=== PATIENT | male | born 1970 | race Two or more races ===

== ENCOUNTER 2021-05-31 10:12 | Inpatient (IN) | payer OTHER ==
[~2021-05-31] VITALS: Ht 170.2 cm; Wt 96.0 kg
--- NOTE | 2021-05-31 10:59 | PHYS DOC ---
General Adult EDM: Chief Complaint: ABDOMINAL PAIN HPI: HPI: Patient is a 50 year olduow-pyva-thw male presents to the ED with right lower quadrant pain and fever that started this morning. Patient states that he was not feeling well yesterday. Patient states that he took Tylenol. Last meal was yesterday due to decrease in appetite. Patient states he has not had this pain before. Patient denies a surgical past. Denies any changes in his bowels. Denies any dysuria or flank pain. Review of Systems: Review of Systems: Constitutional: Patient reports fever fatigue decreased appetite Eyes: Denies change in visual acuity. [] HENT: Denies nasal congestion or sore throat. [] Respiratory: Denies cough or shortness of breath. [] Cardiovascular: Denies chest pain or edema. [] GI: Right lower quadrant abdominal pain nausea no vomiting or diarrhea : No flank denies dysuria. [] Musculoskeletal: Denies back pain or joint pain. [] Integument: Denies rash. [] Neurologic: Denies headache, focal weakness or sensory changes. [] Endocrine: Denies polyuria or polydipsia. [] Lymphatic: Denies swollen glands. [] Psychiatric: Denies depression or anxiety. [] Heart Score: C/O Chest Pain: No Risk Factors: Risk Factors: DM, Current or recent (<one month) smoker, HTN, HLP, family history of CAD, obesity. Risk Scores: Score 0 - 3: 2.5% MACE over next 6 weeks - Discharge Home Score 4 - 6: 20.3% MACE over next 6 weeks - Admit for Clinical Observation Score 7 - 10: 72.7% MACE over next 6 weeks - Early Invasive Strategies Allergies: Allergies: Allergies Coded Allergies Type Severity Reaction Last Updated Verified No Known Drug Allergies 05/31/21 No Physical Exam: PE: Constitutional: Well developed, well nourished, no acute distress, non-toxic appearance. [] HENT: Normocephalic, atraumatic, bilateral external ears normal, oropharynx moist, no oral exudates, nose normal. [] Eyes: PERRLA, EOMI, conjunctiva normal, no discharge. [] Neck: Normal range of motion, no tenderness, supple, no stridor. [] Cardiovascular:Heart rate regular rhythm, no murmur [] Lungs & Thorax: Bilateral breath sounds clear to auscultation [] Abdomen: Patient's abdomen is soft with normal bowel sounds. Patient does have tenderness along McBurney's point with no rebound tenderness.] Skin: Warm, dry, no erythema, no rash. [] Back: No tenderness, no CVA tenderness. [] Extremities: No tenderness, no cyanosis, no clubbing, ROM intact, no edema. [] Neurologic: Alert and oriented X 3, normal motor function, normal sensory function, no focal deficits noted. [] Psychologic: Affect normal, judgement normal, mood normal. [] EKG: EKG: [] Patient is a normal sinus rhythm with a heart rate of 95 QTC 4 2 with a MA interval 184. Patient does have T wave inversions in lead III and aVF. No reciprocal changes Radiology/Procedures: Radiology/Procedures: []Impression: 1. Acute uncomplicated appendicitis. 2. Multiple peripherally calcified objects within the ascending and transverse colon, suspect ingested bones. Correlate with dietary/ingestion history. Discussed with surgery on-call Discussed with patient's primary care physician Course & Med Decision Making: Course & Med Decision Making Pertinent Labs and Imaging studies reviewed. (See chart for details) [] Dragon Disclaimer: Dragon Disclaimer: This electronic medical record was generated, in whole or in part, using a voice recognition dictation system. Departure Departure Referrals: NO PCP (PCP) YENI RODRIGUEZ DO May 31, 2021 10:59
[2021-05-31] MEDS ORDERED: IV NORMAL SALINE 1000ML BAG 1,000 ML IV SCH (11:00)
[2021-05-31] MEDS ORDERED: MORPHINE SULFATE 2 MG/ML INJ. IVP ONE (11:00)
[2021-05-31 11:36] LABS: BASO % 0 % (0-3); EOS % 0 % (0-3); HEMATOCRIT 41.8 % (39.0-53.0); HEMOGLOBIN 13.9 g/dL (13.0-17.5); LYMPH # 0.4 x10^3/uL (1.0-4.8); LYMPH % 4 % (24-48); MEAN CORPUSCULAR HEMOGLOBIN 25 pg (25-35); MEAN CORPUSCULAR HGB CONC 33 g/dL (31-37); MEAN CORPUSCULAR VOLUME 77 fL (79-100); MONO # 0.1 x10^3/uL (0.0-1.1); MONO % 1 % (0-9); NEUT # 10.8 x10^3/uL (1.8-7.7); NEUT % 95 % (31-73); PLATELET COUNT 174 x10^3/uL (140-400); RED BLOOD COUNT 5.47 x10^6/uL (4.30-5.70); RED CELL DISTRIBUTION WIDTH 14.9 % (11.5-14.5); WHITE BLOOD COUNT 11.3 x10^3/uL (4.0-11.0)
[2021-05-31 11:44] LABS: PROTHROMBIN TIME PATIENT 14.5 SEC (11.7-14.0)
[2021-05-31 11:48] LABS: CALCIUM 9.1 mg/dL (8.5-10.1); CREATININE 1.3 mg/dL (0.7-1.3); GFR 58.4; POTASSIUM 3.2 mmol/L (3.5-5.1)
[2021-05-31 11:55] LABS: ALBUMIN 3.6 g/dL (3.4-5.0); TOTAL BILIRUBIN 0.5 mg/dL (0.2-1.0); TOTAL PROTEIN 7.1 g/dL (6.4-8.2)
[2021-05-31] MEDS ORDERED: IOHEXOL 300 MG/ML 100ML VIAL. IV ONE (12:15)
--- NOTE | 2021-05-31 13:18 | RAD ---
CT ABDOMEN+PELVIS W History: Right lower quadrant pain and fever. Comparison: None. Technique: CT of abdomen and pelvis with intravenous contrast. Findings: Mild dependent changes in the lung bases. Subcentimeter hypodensity in the right hepatic lobe too sma ll to completely characterize, most likely represents benign cyst or hemangioma. The gallbladder, vu creas, spleen, adrenal glands, and kidneys are unremarkable. The stomach is decompressed. Small bowel is unremarkable. There is a dilated appendix measuring 1.5 c m diameter with adjacent inflammatory fat stranding. No periappendiceal fluid collection is identifie d. There are irregular peripherally calcified, essentially hypodense rectangular and irregular shaped hypodense measuring approximately 1.4 cm x 0.4 cm layering dependently throughout the proximal colon consistent with ingested material, possibly bones. The bladder and prostate are unremarkable. Mild aortoiliac calcification without aneurysm. No abdomin al pelvic adenopathy. No intra-abdominal free air or free fluid. The soft tissues are unremarkable. Multilevel degenerative disc and facet disease in the lumbar spine . Impression: 1. Acute uncomplicated appendicitis. 2. Multiple peripherally calcified objects within the ascending and transverse colon, suspect ingest ed bones. Correlate with dietary/ingestion history. ------ Exposure: One or more of the following individualized dose reduction techniques were utilized for thi s examination: 1. Automated exposure control 2. Adjustment of the mA and/or kV according to patient size 3. Use of iterative reconstruction technique. Electronically signed by: Charles Powell MD (05/31/2021 1:15 PM) [id number]
--- NOTE | 2021-05-31 13:44 | EKG ---
[facility] [address] [place] [address] Test Date: 2021-05-31 Test Time: 11:03:40 Pat Name: JEAN PAUL YOON Department: Room: Gender: M Radiology Tech: : [id number] Requested By: YENI RODRIGUEZ Order Number: [id number] Reading MD: Bruce Owens Measurements Intervals [place] Rate: 95 P: 33 MI: 184 QRS: 49 QRSD: 110 T: -21 QT: 338 QTc: 428 Interpretive Statements SINUS RHYTHM Electronically Signed On 06-02-2021 13:32:46 CDT by Bruce Owens
[2021-05-31] MEDS ORDERED: PROCHLORPERAZINE 10 MG/2 ML VIAL. IVP PRN (14:15)
[2021-05-31] MEDS ORDERED: HYDROmorphone 2 MG/ML INJ. IVP PRN (14:15)
[2021-05-31] MEDS ORDERED: IV RINGERS,LACTATED 1000ML 1,000 ML IV SCH (14:15)
[2021-05-31] MEDS ORDERED: PIPERACILLIN/TAZOBACTAM 3.375 GM in IV NORMAL SALINE 50ML 50 ML IV ONE (14:15)
[2021-05-31] MEDS ORDERED: MORPHINE SULFATE 2 MG/ML INJ. IVP PRN (14:15)
[2021-05-31] MEDS ORDERED: fentaNYL PF VIAL 100 MCG/2 ML VIAL IVP PRN ×2 (14:15)
[2021-05-31] MEDS ORDERED: BUPIVACAINE-EPI 0.5% 30 ML VIAL KIT. ONE (14:44)
--- NOTE | 2021-05-31 14:45 | PDOC2 ---
CONSULT Date of Consult Date of Consult DATE: 05/31/21 TIME: 14:42 History of Present Illness Reason for Visit: The patient is a 50 year old male who reported to the ER with abdominal pain. The pain began yesterday and has been located in the RLQ. The pain was severe and persistent today. He denies radiation of the pain. He also denies nausea or vomiting. His ER evaluation is consistent with acute appendicitis. Past Medical History Past Medical History diabetes mellitus, CAD Past Surgical History Past Surgical History cardiac stents Social History No ALCOHOL: none Drugs: None Current Problem List Problem List Problems Medical Problems: (1) Appendicitis Status: Acute Current Medications Current Medications Current Medications Sodium Chloride 1,000 ml @ 1,000 mls/hr Q1H IV Last administered on 05/31/21at 11:31; Start 05/31/21 at 11:00; Stop 05/31/21 at 11:59; Status DC Morphine Sulfate (Morphine Sulfate) 2 mg 1X ONCE IVP Last administered on 05/31/21at 11:31; Start 05/31/21 at 11:00; Stop 05/31/21 at 11:08; Status DC Iohexol (Omnipaque 300 Mg/ml) 60 ml 1X ONCE IV Last administered on 05/31/21at 12:26; Start 05/31/21 at 12:15; Stop 05/31/21 at 12:18; Status DC Piperacillin Sod/ Tazobactam Sod 3.375 gm/Sodium Chloride 50 ml @ 100 mls/hr 1X ONCE IV ; Start 05/31/21 at 14:15; Stop 05/31/21 at 14:44 Fentanyl Citrate (Fentanyl 2ml Vial) 25 mcg PRN Q5MIN PRN IVP MILD PAIN 1-3; Start 05/31/21 at 14:15; Stop 06/01/21 at 14:14 Fentanyl Citrate (Fentanyl 2ml Vial) 50 mcg PRN Q5MIN PRN IVP MODERATE PAIN 4- 6; Start 05/31/21 at 14:15; Stop 06/01/21 at 14:14 Morphine Sulfate (Morphine Sulfate) 1 mg PRN Q10MIN PRN IVP SEVERE PAIN 7-10; Start 05/31/21 at 14:15; Stop 06/01/21 at 14:14 Ringer's Solution 1,000 ml @ 30 mls/hr Q24H IV ; Start 05/31/21 at 14:15; Stop 06/01/21 at 02:14 Hydromorphone HCl (Dilaudid) 0.5 mg PRN Q10MIN PRN IVP SEVERE PAIN 7-10, 2nd CHOICE; Start 05/31/21 at 14:15; Stop 06/01/21 at 14:14 Prochlorperazine Edisylate (Compazine) 5 mg PACU PRN PRN IVP NAUSEA, MRX1; Start 05/31/21 at 14:15; Stop 06/01/21 at 14:14 Allergies Allergies: Coded Allergies: No Known Drug Allergies (Unverified , 05/31/21) ROS General: No: Chills, Night Sweats, Fatigue, Malaise, Appetite, Other PSYCHOLOGICAL ROS: No: Anxiety, Behavioral Disorder, Concentration difficultie, Decreased libido, Depression, Disorientation, Hallucinations, Hostility, Irritablity, Memory difficulties, Mood Swings, Obsessive thoughts, Physical abuse, Sexual abuse, Sleep disturbances, Suicidal ideation, Other Eyes: No Blurry vision, No Decreased vision, No Double vision, No Dry eyes, No Excessive tearing, No Eye Pain, No Itchy Eyes, No Loss of vision, No Photophobia, No Scotomata, No Uses contacts, No Uses glasses, No Other ALLERGY AND IMMUNOLOGY: No: Hives, Insect Bite Sensitivity, Itchy/Watery Eyes, Nasal Congestion, Post Nasal Drip, Seasonal Allergies, Other Hematological and Lymphatic: No: Bleeding Problems, Blood Clots, Blood Transfusions, Brusing, Night Sweats, Pallor, Swollen Lymph Nodes, Other Respiratory: No: Cough, Hemoptysis, Orthopnea, Pleuritic Pain, Shortness of breath, SOB with excertion, Sputum Changes, Stridor, Tachypnea, Wheezing, Other Cardiovascular: No Chest Pain, No Palpitations, No Orthopnea, No Paroxysmal Noc. Dyspnea, No Edema, No Lt Headedness, No Other Gastrointestinal: Yes Abdominal Pain Genitourinary: No Dysuria, No Frequency, No Incontinence, No Hematuria, No Retention, No Discharge, No Urgency, No Pain, No Flank Pain, No Other, No , No , No , No , No , No , No Musculoskeletal: No Gait Disturbance, No Joint Pain, No Joint Stiffness, No Joint Swelling, No Muscle Pain, No Muscular Weakness, No Pain In:, No Swelling In:, No Other Neurological: No Behavorial Changes, No Bowel/Bladder ControlChng, No Confusion, No Dizziness, No Gait Disturbance, No Headaches, No Impaired Coord/balance, No Memory Loss, No Numbness/Tingling, No Seizures, No Speech Problems, No Tremors, No Visual Changes, No Weakness, No Other Skin: No Dry Skin, No Eczema, No Hair Changes, No Lumps, No Mole Changes, No M ottling, No Nail Changes, No Pruritus, No Rash, No Skin Lesion Changes, No Other, No Acne Physical Exam General: Alert, Oriented X3, Cooperative HEENT: Atraumatic Lungs: Clear to auscultation Abdomen: Soft (tender with guarding in RLQ) Extremities: No clubbing, No cyanosis Skin: No rashes, No breakdown Neuro: Normal speech Psych/Mental Status: Mental status NL MUSCULOSKELETAL: No joint tenderness, No deformity Vitals VITALS Vital Signs Date Time Temp Pulse Resp B/P (MAP) Pulse Ox O2 Delivery O2 Flow Rate FiO2 05/31/21 13:59 90 21 116/65 (82) 95 Room Air 05/31/21 10:30 98.2 98.2 Labs Labs Laboratory Tests Test 05/31/21 11:05 White Blood Count 11.3 x10^3/uL (4.0-11.0) Red Blood Count 5.47 x10^6/uL (4.30-5.70) Hemoglobin 13.9 g/dL (13.0-17.5) Hematocrit 41.8 % (39.0-53.0) Mean Corpuscular Volume 77 fL (79-100) Mean Corpuscular Hemoglobin 25 pg (25-35) Mean Corpuscular Hemoglobin Concent 33 g/dL (31-37) Red Cell Distribution Width 14.9 % (11.5-14.5) Platelet Count 174 x10^3/uL (140-400) Neutrophils (%) (Auto) 95 % (31-73) Lymphocytes (%) (Auto) 4 % (24-48) Monocytes (%) (Auto) 1 % (0-9) Eosinophils (%) (Auto) 0 % (0-3) Basophils (%) (Auto) 0 % (0-3) Neutrophils # (Auto) 10.8 x10^3/uL (1.8-7.7) Lymphocytes # (Auto) 0.4 x10^3/uL (1.0-4.8) Monocytes # (Auto) 0.1 x10^3/uL (0.0-1.1) Eosinophils # (Auto) 0.0 x10^3/uL (0.0-0.7) Basophils # (Auto) 0.0 x10^3/uL (0.0-0.2) Prothrombin Time 14.5 SEC (11.7-14.0) Prothromb Time International Ratio 1.2 (0.8-1.1) Sodium Level 135 mmol/L (136-145) Potassium Level 3.2 mmol/L (3.5-5.1) Chloride Level 101 mmol/L (98-107) Carbon Dioxide Level 24 mmol/L (21-32) Anion Gap 10 (6-14) Blood Urea Nitrogen 20 mg/dL (8-26) Creatinine 1.3 mg/dL (0.7-1.3) Estimated GFR (Cockcroft-Gault) 58.4 BUN/Creatinine Ratio 15 (6-20) Glucose Level 164 mg/dL (70-99) Calcium Level 9.1 mg/dL (8.5-10.1) Total Bilirubin 0.5 mg/dL (0.2-1.0) Aspartate Amino Transf (AST/SGOT) 43 U/L (15-37) Alanine Aminotransferase (ALT/SGPT) 53 U/L (16-63) Alkaline Phosphatase 95 U/L (46-116) Total Protein 7.1 g/dL (6.4-8.2) Albumin 3.6 g/dL (3.4-5.0) Albumin/Globulin Ratio 1.0 (1.0-1.7) Lipase 94 U/L (73-393) SARS-CoV-2 Antigen (Rapid) Negative (NEGATIVE) Laboratory Tests Test 05/31/21 11:05 White Blood Count 11.3 x10^3/uL (4.0-11.0) Red Blood Count 5.47 x10^6/uL (4.30-5.70) Hemoglobin 13.9 g/dL (13.0-17.5) Hematocrit 41.8 % (39.0-53.0) Mean Corpuscular Volume 77 fL (79-100) Mean Corpuscular Hemoglobin 25 pg (25-35) Mean Corpuscular Hemoglobin Concent 33 g/dL (31-37) Red Cell Distribution Width 14.9 % (11.5-14.5) Platelet Count 174 x10^3/uL (140-400) Neutrophils (%) (Auto) 95 % (31-73) Lymphocytes (%) (Auto) 4 % (24-48) Monocytes (%) (Auto) 1 % (0-9) Eosinophils (%) (Auto) 0 % (0-3) Basophils (%) (Auto) 0 % (0-3) Neutrophils # (Auto) 10.8 x10^3/uL (1.8-7.7) Lymphocytes # (Auto) 0.4 x10^3/uL (1.0-4.8) Monocytes # (Auto) 0.1 x10^3/uL (0.0-1.1) Eosinophils # (Auto) 0.0 x10^3/uL (0.0-0.7) Basophils # (Auto) 0.0 x10^3/uL (0.0-0.2) Prothrombin Time 14.5 SEC (11.7-14.0) Prothromb Time International Ratio 1.2 (0.8-1.1) Sodium Level 135 mmol/L (136-145) Potassium Level 3.2 mmol/L (3.5-5.1) Chloride Level 101 mmol/L (98-107) Carbon Dioxide Level 24 mmol/L (21-32) Anion Gap 10 (6-14) Blood Urea Nitrogen 20 mg/dL (8-26) Creatinine 1.3 mg/dL (0.7-1.3) Estimated GFR (Cockcroft-Gault) 58.4 BUN/Creatinine Ratio 15 (6-20) Glucose Level 164 mg/dL (70-99) Calcium Level 9.1 mg/dL (8.5-10.1) Total Bilirubin 0.5 mg/dL (0.2-1.0) Aspartate Amino Transf (AST/SGOT) 43 U/L (15-37) Alanine Aminotransferase (ALT/SGPT) 53 U/L (16-63) Alkaline Phosphatase 95 U/L (46-116) Total Protein 7.1 g/dL (6.4-8.2) Albumin 3.6 g/dL (3.4-5.0) Albumin/Globulin Ratio 1.0 (1.0-1.7) Lipase 94 U/L (73-393) SARS-CoV-2 Antigen (Rapid) Negative (NEGATIVE) Images Images CT reviewed Assessment/Plan Assessment/Plan RLQ pain, suspect acute appendicitis, plan to OR for laparoscopy. The details and risks of surgery were discussed with the patient. He understands and would like to proceed. NEIL DE JESUS MD May 31, 2021 14:45
[2021-05-31] MEDS ORDERED: ROCURONIUM 50 MG/5 ML VIAL. ONE (14:51)
[2021-05-31] MEDS ORDERED: PROPOFOL 10 MG/ML (20ML) VIAL. IV ONE ×2 (14:51→15:31)
[2021-05-31] MEDS ORDERED: LIDOCAINE 2% PF 5 ML VIAL. ONE (14:51)
[2021-05-31] MEDS ORDERED: DEXAMETHASONE SOD PHOS 4 MG/ML VIAL ONE (14:51)
[2021-05-31] MEDS ORDERED: ONDANSETRON PF 4 MG/2 ML VIAL. ONE (14:51)
[2021-05-31] MEDS ORDERED: PHENYLEPHRINE in 0.9% NACL PF 1 MG/10 ML SYRINGE. IV ONE (15:18)
[2021-05-31] MEDS ORDERED: fentaNYL PF VIAL 100 MCG/2 ML VIAL ONE (15:31)
[2021-05-31] MEDS ORDERED: SUGAMMADEX SODIUM 200 MG/2 ML VIAL. IVP ONE (16:00)
--- NOTE | 2021-05-31 16:06 | PDOC4 ---
Operative Note Operative Note Preoperative Diagnosis: Acute Appendicitis Postoperative Diagnosis: Gangrenous appendicitis Procedure: Laparoscopic appendectomy Surgeon: Alfonso Supervisor Curing Room: Regulo Higgins, MS 3 Anesthesia: Gen. EBL: 10 mL Specimen: Appendix to pathology Drains: None Complications: None Indication: The patient is a 50-year-old male who reported to the emergency department with abdominal pain. The evaluation is consistent with acute appendicitis. The patient was offered surgical treatment with a laparoscopic appendectomy. The risks of surgery were discussed which include bleeding, infection, visceral injury, pain, anesthetic risk, potential need for additional surgery or procedure. The patient understands and would like to proceed. Description: The patient was taken to the operating room and placed supine on the operating table. Gen. anesthesia was performed. The abdomen was prepped with ChloraPrep and draped in a standard surgical manner. A supraumbilical incision was made through which a veress needle was inserted and a pneumoperitoneum was created. A visualized 5 mm trocar was inserted and the laparoscope was introduced. In the left lower quadrant a 5 mm trocar was inserted. In the suprapubic region a 12 mm trocar was inserted. The appendix was identified and was entirely gangrenous. There was no clear evidence of perforation or periappendiceal abscess. The mesoappendix was bluntly from the appendix. The mesoappendix was controlled using several clips and it was divided. The appendix was then amputated off the cecum using an Endo OSIEL 45 stapling device. The appendix was then placed in an endoscopic bag and extracted at the suprapubic incision site. The fascia there was closed with 0 Vicryl and infiltrated with half percent Marcaine with epinephrine. The RLQ was visualized and the staple line appeared well intact and hemostasis was good. No other abnormalities were identified grossly. The remaining ports were removed and the pneumoperitoneum was relieved. The skin at all incision sites was closed with 4- 0 Monocryl. Steri-Strips and dressings were applied. The patient tolerated the procedure well and was sent to the recovery room in stable condition. At the end of the case all counts were correct. NEIL DE JESUS MD May 31, 2021 16:05
[2021-05-31] MEDS ORDERED: INSULIN LISPRO 100 UNIT/ML 3ML VIAL for OP,RR ONLY. SQ PRN (16:45)
[2021-05-31] MEDS: PIPERACILLIN/TAZOBACTAM 3.375 GM in IV NORMAL SALINE 50ML 50 ML IV SCH (17:29)
[2021-05-31 18:02] VITALS: BP 117/67
--- NOTE | 2021-05-31 18:29 | PDOC ---
Provider Note Date of Service: DATE: 05/31/21 TIME: 18:28 Provider Note Pt seen.H&P dictated.#[id number]. Justifications for Admission Other Justification MELONY KIMBLE MD May 31, 2021 18:29
[2021-05-31 19:00] VITALS: BP 101/62
[2021-05-31 23:00] VITALS: BP 120/70
[2021-06-01] MEDS: PIPERACILLIN/TAZOBACTAM 3.375 GM in IV NORMAL SALINE 50ML 50 ML IV SCH ×4 (00:11→18:18)
[2021-06-01 03:00] VITALS: BP 113/65
[2021-06-01] MEDS: oxyCODONE/APAP 5/325 1 TAB TABLET PO PRN ×3 (03:34→20:05)
[2021-06-01 07:00] VITALS: BP 104/64
[2021-06-01 07:22] LABS: BASO % 0 % (0-3); EOS % 0 % (0-3); HEMATOCRIT 37.4 % (39.0-53.0); HEMOGLOBIN 12.3 g/dL (13.0-17.5); LYMPH # 0.6 x10^3/uL (1.0-4.8); LYMPH % 5 % (24-48); MEAN CORPUSCULAR HEMOGLOBIN 26 pg (25-35); MEAN CORPUSCULAR HGB CONC 33 g/dL (31-37); MEAN CORPUSCULAR VOLUME 78 fL (79-100); MONO # 0.6 x10^3/uL (0.0-1.1); MONO % 5 % (0-9); NEUT # 10.3 x10^3/uL (1.8-7.7); NEUT % 90 % (31-73); PLATELET COUNT 162 x10^3/uL (140-400); RED CELL DISTRIBUTION WIDTH 15.3 % (11.5-14.5); WHITE BLOOD COUNT 11.5 x10^3/uL (4.0-11.0)
[2021-06-01 07:27] LABS: ALBUMIN 2.9 g/dL (3.4-5.0); ALBUMIN/GLOBULIN RATIO 0.7 (1.0-1.7); CALCIUM 8.5 mg/dL (8.5-10.1); CREATININE 0.7 mg/dL (0.7-1.3); GFR 119.4; POTASSIUM 3.3 mmol/L (3.5-5.1); TOTAL BILIRUBIN 0.5 mg/dL (0.2-1.0); TOTAL PROTEIN 7.1 g/dL (6.4-8.2)
--- NOTE | 2021-06-01 09:26 | PDOC ---
PROGRESS NOTES Date of Service: DATE: 06/01/21 TIME: 09:24 Subjective Subjective feels good ,eating breakfast Objective Objective Vital Signs Date Time Temp Pulse Resp B/P (MAP) Pulse Ox O2 Delivery O2 Flow Rate FiO2 06/01/21 07:00 98.6 75 20 104/64 (77) 95 Nasal Cannula 2.0 98.6 Intake and Output 06/01/21 07:00 Intake Total 2350 ml Output Total 910 ml Balance 1440 ml Intake IV Total 2350 ml Output Urine Total 900 ml Estimated Blood Loss 10 ml # Voids 1 Physical Exam Abdomen: Soft (tender with guarding in RLQ) Extremities: No clubbing, No cyanosis General: Alert, Oriented X3, Cooperative HEENT: Atraumatic Lungs: Clear to auscultation MUSCULOSKELETAL: No joint tenderness, No deformity Neuro: Normal speech Psych/Mental Status: Mental status NL Skin: No rashes, No breakdown Diagnosis Problem List Problems Medical Problems: (1) Appendicitis Status: Acute Assessment Assessment Problems Medical Problems: (1) Appendicitis Status: Acute Plan:POD#1 LAP appendectomy-gangrenous appendix removed. possible d/c home today. replace pot pot 3.3,other labs ok Plan Plan of Care Problems Medical Problems: (1) Appendicitis Status: Acute Comment Review of Relevant I have reviewed the following items reny (where applicable) has been applied. Labs Laboratory Tests Test 05/31/21 11:05 05/31/21 14:55 05/31/21 16:41 06/01/21 06:00 White Blood Count 11.3 x10^3/uL (4.0-11.0) 11.5 x10^3/uL (4.0-11.0) Red Blood Count 5.47 x10^6/uL (4.30-5.70) 4.80 x10^6/uL (4.30-5.70) Hemoglobin 13.9 g/dL (13.0-17.5) 12.3 g/dL (13.0-17.5) Hematocrit 41.8 % (39.0-53.0) 37.4 % (39.0-53.0) Mean Corpuscular Volume 77 fL (79-100) 78 fL (79-100) Mean Corpuscular Hemoglobin 25 pg (25-35) 26 pg (25-35) Mean Corpuscular Hemoglobin Concent 33 g/dL (31-37) 33 g/dL (31-37) Red Cell Distribution Width 14.9 % (11.5-14.5) 15.3 % (11.5-14.5) Platelet Count 174 x10^3/uL (140-400) 162 x10^3/uL (140-400) Neutrophils (%) (Auto) 95 % (31-73) 90 % (31-73) Lymphocytes (%) (Auto) 4 % (24-48) 5 % (24-48) Monocytes (%) (Auto) 1 % (0-9) 5 % (0-9) Eosinophils (%) (Auto) 0 % (0-3) 0 % (0-3) Basophils (%) (Auto) 0 % (0-3) 0 % (0-3) Neutrophils # (Auto) 10.8 x10^3/uL (1.8-7.7) 10.3 x10^3/uL (1.8-7.7) Lymphocytes # (Auto) 0.4 x10^3/uL (1.0-4.8) 0.6 x10^3/uL (1.0-4.8) Monocytes # (Auto) 0.1 x10^3/uL (0.0-1.1) 0.6 x10^3/uL (0.0-1.1) Eosinophils # (Auto) 0.0 x10^3/uL (0.0-0.7) 0.0 x10^3/uL (0.0-0.7) Basophils # (Auto) 0.0 x10^3/uL (0.0-0.2) 0.0 x10^3/uL (0.0-0.2) Prothrombin Time 14.5 SEC (11.7-14.0) Prothromb Time International Ratio 1.2 (0.8-1.1) Sodium Level 135 mmol/L (136-145) 138 mmol/L (136-145) Potassium Level 3.2 mmol/L (3.5-5.1) 3.3 mmol/L (3.5-5.1) Chloride Level 101 mmol/L (98-107) 105 mmol/L (98-107) Carbon Dioxide Level 24 mmol/L (21-32) 22 mmol/L (21-32) Anion Gap 10 (6-14) 11 (6-14) Blood Urea Nitrogen 20 mg/dL (8-26) 20 mg/dL (8-26) Creatinine 1.3 mg/dL (0.7-1.3) 0.7 mg/dL (0.7-1.3) Estimated GFR (Cockcroft-Gault) 58.4 119.4 BUN/Creatinine Ratio 15 (6-20) 29 (6-20) Glucose Level 164 mg/dL (70-99) 117 mg/dL (70-99) Calcium Level 9.1 mg/dL (8.5-10.1) 8.5 mg/dL (8.5-10.1) Total Bilirubin 0.5 mg/dL (0.2-1.0) 0.5 mg/dL (0.2-1.0) Aspartate Amino Transf (AST/SGOT) 43 U/L (15-37) 21 U/L (15-37) Alanine Aminotransferase (ALT/SGPT) 53 U/L (16-63) 45 U/L (16-63) Alkaline Phosphatase 95 U/L (46-116) 65 U/L (46-116) Total Protein 7.1 g/dL (6.4-8.2) 7.1 g/dL (6.4-8.2) Albumin 3.6 g/dL (3.4-5.0) 2.9 g/dL (3.4-5.0) Albumin/Globulin Ratio 1.0 (1.0-1.7) 0.7 (1.0-1.7) Lipase 94 U/L (73-393) SARS-CoV-2 Antigen (Rapid) Negative (NEGATIVE) Glucose (Fingerstick) 113 mg/dL (70-99) 155 mg/dL (70-99) Test 06/01/21 07:26 Glucose (Fingerstick) 124 mg/dL (70-99) Medications Current Medications Bupivacaine HCl/ Epinephrine Bitart (Sensorcain-Epi 0.5% Kit) 30 ml STK-MED ONCE .ROUTE Last administered on 05/31/21at 15:25; Start 05/31/21 at 14:44; Stop 05/31/21 at 14:44; Status DC Dexamethasone Sodium Phosphate (Decadron) 4 mg STK-MED ONCE .ROUTE ; Start 05/31/21 at 14:51; Stop 05/31/21 at 14:52; Status DC Fentanyl Citrate (Fentanyl 2ml Vial) 25 mcg PRN Q5MIN PRN IVP MILD PAIN 1-3; Start 05/31/21 at 14:15; Stop 06/01/21 at 14:14 Fentanyl Citrate (Fentanyl 2ml Vial) 50 mcg PRN Q5MIN PRN IVP MODERATE PAIN 4- 6; Start 05/31/21 at 14:15; Stop 06/01/21 at 14:14 Fentanyl Citrate (Fentanyl 2ml Vial) 100 mcg STK-MED ONCE .ROUTE ; Start 05/31/21 at 15:31; Stop 05/31/21 at 15:31; Status DC Hydromorphone HCl (Dilaudid) 0.5 mg PRN Q10MIN PRN IVP SEVERE PAIN 7-10, 2nd CHOICE; Start 05/31/21 at 14:15; Stop 06/01/21 at 14:14 Insulin Human Lispro (HumaLOG VIAL for OP,RR ONLY) 0-10 units PRN Q1HR PRN SQ PER PROTOCOL Last administered on 05/31/21at 16:49; Start 05/31/21 at 16:45; Stop 06/01/21 at 16:44 Iohexol (Omnipaque 300 Mg/ml) 60 ml 1X ONCE IV Last administered on 05/31/21at 12:26; Start 05/31/21 at 12:15; Stop 05/31/21 at 12:18; Status DC Lidocaine HCl (Lidocaine Pf 2% Vial) 5 ml STK-MED ONCE .ROUTE ; Start 05/31/21 at 14:51; Stop 05/31/21 at 14:52; Status DC Morphine Sulfate (Morphine Sulfate) 1 mg PRN Q10MIN PRN IVP SEVERE PAIN 7-10; Start 05/31/21 at 14:15; Stop 06/01/21 at 14:14 Morphine Sulfate (Morphine Sulfate) 2 mg 1X ONCE IVP Last administered on 05/31/21at 11:31; Start 05/31/21 at 11:00; Stop 05/31/21 at 11:08; Status DC Ondansetron HCl (Zofran) 4 mg STK-MED ONCE .ROUTE ; Start 05/31/21 at 14:51; Stop 05/31/21 at 14:52; Status DC Oxycodone/ Acetaminophen (Percocet 5/325) 1 tab PRN Q4HRS PRN PO PAIN Last administered on 06/01/21at 03:34; Start 05/31/21 at 16:15 Phenylephrine HCl (PHENYLEPHRINE in 0.9% NACL PF) 1 mg STK-MED ONCE IV ; Start 05/31/21 at 15:18; Stop 05/31/21 at 15:18; Status DC Piperacillin Sod/ Tazobactam Sod 3.375 gm/Sodium Chloride 50 ml @ 100 mls/hr 1X ONCE IV ; Start 05/31/21 at 14:15; Stop 05/31/21 at 14:44; Status Cancel Piperacillin Sod/ Tazobactam Sod 3.375 gm/Sodium Chloride 50 ml @ 100 mls/hr Q6HRS IV Last administered on 06/01/21at 05:53; Start 05/31/21 at 18:00 Prochlorperazine Edisylate (Compazine) 5 mg PACU PRN PRN IVP NAUSEA, MRX1; Start 05/31/21 at 14:15; Stop 06/01/21 at 14:14 Propofol (Diprivan) 200 mg STK-MED ONCE IV ; Start 05/31/21 at 14:51; Stop 05/31/21 at 14:52; Status DC Propofol (Diprivan) 200 mg STK-MED ONCE IV ; Start 05/31/21 at 15:31; Stop 05/31/21 at 15:31; Status DC Ringer's Solution 1,000 ml @ 30 mls/hr Q24H IV ; Start 05/31/21 at 14:15; Stop 06/01/21 at 02:14; Status DC Rocuronium [place] (Zemuron) 50 mg STK-MED ONCE .ROUTE ; Start 05/31/21 at 14:51; Stop 05/31/21 at 14:52; Status DC Sodium Chloride 1,000 ml @ 1,000 mls/hr Q1H IV Last administered on 05/31/21at 11:31; Start 05/31/21 at 11:00; Stop 05/31/21 at 11:59; Status DC Sugammadex Sodium (Bridion) 200 mg 1X ONCE IVP ; Start 05/31/21 at 16:00; Stop 05/31/21 at 16:01; Status DC Vitals/I & O Vital Sign - Last 24 Hours 05/31/21 05/31/21 05/31/21 05/31/21 10:30 11:31 11:32 11:59 Temp 98.2 98.2 Pulse 149 93 90 Resp B/P (MAP) 185/131 (149) 116/66 (83) 117/66 (83) Pulse Ox 99 94 94 94 O2 Delivery Room Air Room Air Room Air 05/31/21 05/31/21 05/31/21 05/31/21 12:59 13:29 13:59 14:47 Temp 103.1 103.1 Pulse 91 90 90 88 Resp 16 B/P (MAP) 123/64 (83) 115/66 (82) 116/65 (82) 119/73 Pulse Ox 95 95 95 97 O2 Delivery Room Air Room Air Room Air Room Air 05/31/21 05/31/21 05/31/21 05/31/21 16:21 16:21 16:36 16:52 Temp 98.1 98.6 98.1 98.6 Pulse 81 80 85 Resp B/P (MAP) 108/61 106/64 118/64 Pulse Ox 98 98 92 O2 Delivery Simple Mask Mask Simple Mask Room Air Simple Mask O2 Flow Rate 10.0 10.0 10.0 05/31/21 05/31/21 05/31/21 05/31/21 17:07 17:22 18:02 19:00 Temp 98.6 98.6 99.7 100.8 98.6 98.6 99.7 100.8 Pulse 84 85 83 94 Resp 20 B/P (MAP) 113/64 112/60 117/67 (84) 101/62 (75) Pulse Ox 92 91 94 94 O2 Delivery Room Air Room Air Nasal Cannula Nasal Cannula Simple Mask Simple Mask O2 Flow Rate 2.0 2.0 05/31/21 05/31/21 06/01/21 06/01/21 20:15 23:00 03:00 07:00 Temp 100.1 99.8 98.6 100.1 99.8 98.6 Pulse 85 83 75 Resp 22 22 20 B/P (MAP) 120/70 (87) 113/65 (81) 104/64 (77) Pulse Ox 95 93 95 O2 Delivery Room Air Nasal Cannula Nasal Cannula Nasal Cannula O2 Flow Rate 2.0 2.0 2.0 Intake and Output 05/31/21 05/31/21 06/01/21 15:00 23:00 07:00 Intake Total 2250 ml 100 ml Output Total 110 ml 800 ml Balance 2140 ml -700 ml Justifications for Admission Other Justification MELONY KIMBLE MD Jun 01, 2021 09:26
[2021-06-01] MEDS ORDERED: POTASSIUM CHLORIDE 20 MEQ TABLET.ER. PO ONE (09:30)
--- NOTE | 2021-06-01 09:36 | HP ---
DATE OF SERVICE: 05/31/2021 ADMIT DATE: 05/31/2021 MEDICAL HISTORY AND PHYSICAL PATIENT LOCATION: 205. REASON FOR ADMISSION TO THE HOSPITAL: Abdominal pain, acute appendicitis. HISTORY OF PRESENT ILLNESS: The patient is a 50-year-old male with history of diabetes, hypertension, hyperlipidemia, who was in pain in the right lower quadrant, started yesterday, got progressively worse and came to the Emergency Room today. CT scan shows acute appendicitis. The patient was admitted to the hospital. Surgery was consulted. The patient was taken to surgery, had a laparoscopic appendectomy today. PAST MEDICAL HISTORY: Diabetes, hypertension, hyperlipidemia. PAST SURGICAL HISTORY: No major surgeries. ALLERGIES: None. MEDICAL HISTORY: Cardiac stents, CAD. SOCIAL HISTORY: Denies smoking, alcohol, drug abuse. MEDICATIONS: At home, I believe the patient takes insulin. We will do fingersticks and check her blood sugars. REVIEW OF SYMPTOMS: The patient feels better, but had severe pain yesterday. PHYSICAL EXAMINATION: VITAL SIGNS: At the time of admission shows temperature 103, pulse 88, respirations 16, blood pressure 119/73, 97 on room air. HEENT: Head is atraumatic. Pupils equal. Oral cavity, no congestion. NECK: Supple. Thyroid not enlarged. JVD not elevated. CHEST: Symmetrical. LUNGS: Clear. ABDOMEN: Dressings did not press at this time, did not do abdominal palpation at this time. EXTERNAL GENITALIA: No Lee. RECTUM: Deferred. EXTREMITIES: No calf tenderness. NEUROLOGIC: No focal deficits noted. Moving all extremities. LABORATORY DATA: White count 11, hemoglobin 14, platelets 174. INR 1.2. Electrolytes show sodium 135, potassium 3.2, chloride 101, bicarb 24, anion gap 10, BUN 20, creatinine 1.3, glucose 164. LFTs normal. COVID screen negative. CT scan of the abdomen and pelvis, which shows acute uncomplicated appendicitis. FINAL IMPRESSION: 1. Acute appendicitis. 2. Diabetes. 3. Hyperlipidemia. PLAN: At this time, the patient had a laparoscopic appendectomy. The patient was doing fine. Continue to monitor blood sugars with sliding scale and appendix showed some gangrenous appendix. URVASHI/HERNANDEZ/HORACE DR: Jose TID: [id number]
[2021-06-01] MEDS ORDERED: AMOX1TAB61 PO (09:45)
[2021-06-01] MEDS ORDERED: OXYC1TAB15 PO (09:45)
--- NOTE | 2021-06-01 09:45 | PDOC ---
SURGICAL PROGRESS NOTE DATE: 06/01/21 TIME: 09:44 Subjective tolerating diet pain managed no nausea Vital Signs Vital Signs Date Time Temp Pulse Resp B/P (MAP) Pulse Ox O2 Delivery O2 Flow Rate FiO2 06/01/21 07:00 98.6 75 20 104/64 (77) 95 Nasal Cannula 2.0 98.6 I&O Intake and Output 06/01/21 07:00 Intake Total 2350 ml Output Total 910 ml Balance 1440 ml Intake IV Total 2350 ml Output Urine Total 900 ml Estimated Blood Loss 10 ml # Voids 1 General: Alert, Oriented X3, Cooperative Abdomen: Soft, Other (lap dressings dry) Labs Laboratory Tests Test 05/31/21 11:05 05/31/21 14:55 05/31/21 16:41 06/01/21 06:00 White Blood Count 11.3 x10^3/uL (4.0-11.0) 11.5 x10^3/uL (4.0-11.0) Red Blood Count 5.47 x10^6/uL (4.30-5.70) 4.80 x10^6/uL (4.30-5.70) Hemoglobin 13.9 g/dL (13.0-17.5) 12.3 g/dL (13.0-17.5) Hematocrit 41.8 % (39.0-53.0) 37.4 % (39.0-53.0) Mean Corpuscular Volume 77 fL (79-100) 78 fL (79-100) Mean Corpuscular Hemoglobin 25 pg (25-35) 26 pg (25-35) Mean Corpuscular Hemoglobin Concent 33 g/dL (31-37) 33 g/dL (31-37) Red Cell Distribution Width 14.9 % (11.5-14.5) 15.3 % (11.5-14.5) Platelet Count 174 x10^3/uL (140-400) 162 x10^3/uL (140-400) Neutrophils (%) (Auto) 95 % (31-73) 90 % (31-73) Lymphocytes (%) (Auto) 4 % (24-48) 5 % (24-48) Monocytes (%) (Auto) 1 % (0-9) 5 % (0-9) Eosinophils (%) (Auto) 0 % (0-3) 0 % (0-3) Basophils (%) (Auto) 0 % (0-3) 0 % (0-3) Neutrophils # (Auto) 10.8 x10^3/uL (1.8-7.7) 10.3 x10^3/uL (1.8-7.7) Lymphocytes # (Auto) 0.4 x10^3/uL (1.0-4.8) 0.6 x10^3/uL (1.0-4.8) Monocytes # (Auto) 0.1 x10^3/uL (0.0-1.1) 0.6 x10^3/uL (0.0-1.1) Eosinophils # (Auto) 0.0 x10^3/uL (0.0-0.7) 0.0 x10^3/uL (0.0-0.7) Basophils # (Auto) 0.0 x10^3/uL (0.0-0.2) 0.0 x10^3/uL (0.0-0.2) Prothrombin Time 14.5 SEC (11.7-14.0) Prothromb Time International Ratio 1.2 (0.8-1.1) Sodium Level 135 mmol/L (136-145) 138 mmol/L (136-145) Potassium Level 3.2 mmol/L (3.5-5.1) 3.3 mmol/L (3.5-5.1) Chloride Level 101 mmol/L (98-107) 105 mmol/L (98-107) Carbon Dioxide Level 24 mmol/L (21-32) 22 mmol/L (21-32) Anion Gap 10 (6-14) 11 (6-14) Blood Urea Nitrogen 20 mg/dL (8-26) 20 mg/dL (8-26) Creatinine 1.3 mg/dL (0.7-1.3) 0.7 mg/dL (0.7-1.3) Estimated GFR (Cockcroft-Gault) 58.4 119.4 BUN/Creatinine Ratio 15 (6-20) 29 (6-20) Glucose Level 164 mg/dL (70-99) 117 mg/dL (70-99) Calcium Level 9.1 mg/dL (8.5-10.1) 8.5 mg/dL (8.5-10.1) Total Bilirubin 0.5 mg/dL (0.2-1.0) 0.5 mg/dL (0.2-1.0) Aspartate Amino Transf (AST/SGOT) 43 U/L (15-37) 21 U/L (15-37) Alanine Aminotransferase (ALT/SGPT) 53 U/L (16-63) 45 U/L (16-63) Alkaline Phosphatase 95 U/L (46-116) 65 U/L (46-116) Total Protein 7.1 g/dL (6.4-8.2) 7.1 g/dL (6.4-8.2) Albumin 3.6 g/dL (3.4-5.0) 2.9 g/dL (3.4-5.0) Albumin/Globulin Ratio 1.0 (1.0-1.7) 0.7 (1.0-1.7) Lipase 94 U/L (73-393) SARS-CoV-2 Antigen (Rapid) Negative (NEGATIVE) Glucose (Fingerstick) 113 mg/dL (70-99) 155 mg/dL (70-99) Test 06/01/21 07:26 Glucose (Fingerstick) 124 mg/dL (70-99) Laboratory Tests Test 05/31/21 11:05 05/31/21 14:55 05/31/21 16:41 06/01/21 06:00 White Blood Count 11.3 x10^3/uL (4.0-11.0) 11.5 x10^3/uL (4.0-11.0) Red Blood Count 5.47 x10^6/uL (4.30-5.70) 4.80 x10^6/uL (4.30-5.70) Hemoglobin 13.9 g/dL (13.0-17.5) 12.3 g/dL (13.0-17.5) Hematocrit 41.8 % (39.0-53.0) 37.4 % (39.0-53.0) Mean Corpuscular Volume 77 fL (79-100) 78 fL (79-100) Mean Corpuscular Hemoglobin 25 pg (25-35) 26 pg (25-35) Mean Corpuscular Hemoglobin Concent 33 g/dL (31-37) 33 g/dL (31-37) Red Cell Distribution Width 14.9 % (11.5-14.5) 15.3 % (11.5-14.5) Platelet Count 174 x10^3/uL (140-400) 162 x10^3/uL (140-400) Neutrophils (%) (Auto) 95 % (31-73) 90 % (31-73) Lymphocytes (%) (Auto) 4 % (24-48) 5 % (24-48) Monocytes (%) (Auto) 1 % (0-9) 5 % (0-9) Eosinophils (%) (Auto) 0 % (0-3) 0 % (0-3) Basophils (%) (Auto) 0 % (0-3) 0 % (0-3) Neutrophils # (Auto) 10.8 x10^3/uL (1.8-7.7) 10.3 x10^3/uL (1.8-7.7) Lymphocytes # (Auto) 0.4 x10^3/uL (1.0-4.8) 0.6 x10^3/uL (1.0-4.8) Monocytes # (Auto) 0.1 x10^3/uL (0.0-1.1) 0.6 x10^3/uL (0.0-1.1) Eosinophils # (Auto) 0.0 x10^3/uL (0.0-0.7) 0.0 x10^3/uL (0.0-0.7) Basophils # (Auto) 0.0 x10^3/uL (0.0-0.2) 0.0 x10^3/uL (0.0-0.2) Prothrombin Time 14.5 SEC (11.7-14.0) Prothromb Time International Ratio 1.2 (0.8-1.1) Sodium Level 135 mmol/L (136-145) 138 mmol/L (136-145) Potassium Level 3.2 mmol/L (3.5-5.1) 3.3 mmol/L (3.5-5.1) Chloride Level 101 mmol/L (98-107) 105 mmol/L (98-107) Carbon Dioxide Level 24 mmol/L (21-32) 22 mmol/L (21-32) Anion Gap 10 (6-14) 11 (6-14) Blood Urea Nitrogen 20 mg/dL (8-26) 20 mg/dL (8-26) Creatinine 1.3 mg/dL (0.7-1.3) 0.7 mg/dL (0.7-1.3) Estimated GFR (Cockcroft-Gault) 58.4 119.4 BUN/Creatinine Ratio 15 (6-20) 29 (6-20) Glucose Level 164 mg/dL (70-99) 117 mg/dL (70-99) Calcium Level 9.1 mg/dL (8.5-10.1) 8.5 mg/dL (8.5-10.1) Total Bilirubin 0.5 mg/dL (0.2-1.0) 0.5 mg/dL (0.2-1.0) Aspartate Amino Transf (AST/SGOT) 43 U/L (15-37) 21 U/L (15-37) Alanine Aminotransferase (ALT/SGPT) 53 U/L (16-63) 45 U/L (16-63) Alkaline Phosphatase 95 U/L (46-116) 65 U/L (46-116) Total Protein 7.1 g/dL (6.4-8.2) 7.1 g/dL (6.4-8.2) Albumin 3.6 g/dL (3.4-5.0) 2.9 g/dL (3.4-5.0) Albumin/Globulin Ratio 1.0 (1.0-1.7) 0.7 (1.0-1.7) Lipase 94 U/L (73-393) SARS-CoV-2 Antigen (Rapid) Negative (NEGATIVE) Glucose (Fingerstick) 113 mg/dL (70-99) 155 mg/dL (70-99) Test 06/01/21 07:26 Glucose (Fingerstick) 124 mg/dL (70-99) Problem List Problems Medical Problems: (1) Appendicitis Status: Acute Assessment/Plan s/p appy ok to dc from surgical pov Justicifation of Admission Dx: Justifications for Admission: Justification of Admission Dx: Yes Comments: appendicitis TERRY RAYO MISDRAW HAND Jun 01, 2021 09:45
[2021-06-01 11:00] VITALS: BP 103/65
[2021-06-01 15:00] VITALS: BP 110/63
[2021-06-01 19:00] VITALS: BP 146/95
[2021-06-01] MEDS: LACTOBACILLUS RHAMNOSUS GG 1 CAPSULE. PO SCH (20:03)
[2021-06-01 23:00] VITALS: BP 128/72
[2021-06-02] MEDS: PIPERACILLIN/TAZOBACTAM 3.375 GM in IV NORMAL SALINE 50ML 50 ML IV SCH ×4 (00:29→17:56)
[2021-06-02 03:00] VITALS: BP 135/85
[2021-06-02] MEDS: ACETAMINOPHEN 325 MG TABLET. PO PRN ×3 (03:41→23:02)
[2021-06-02 07:00] VITALS: BP 110/74
[2021-06-02] MEDS: LACTOBACILLUS RHAMNOSUS GG 1 CAPSULE. PO SCH ×2 (09:26→21:31)
--- NOTE | 2021-06-02 09:44 | PDOC ---
PROGRESS NOTES Date of Service: DATE: 06/02/21 TIME: 09:42 Subjective Subjective fever 102 yestrday , Objective Objective Vital Signs Date Time Temp Pulse Resp B/P (MAP) Pulse Ox O2 Delivery O2 Flow Rate FiO2 06/02/21 07:00 99.9 79 18 110/74 (86) 94 Room Air 99.9 06/01/21 09:58 2.0 Intake and Output 06/02/21 07:00 Intake Total 2140 ml Balance 2140 ml Intake Oral 2040 ml IV Total 100 ml # Voids 4 Physical Exam Abdomen: Soft, Other (lap dressings dry) Extremities: No clubbing, No cyanosis General: Alert, Oriented X3, Cooperative HEENT: Atraumatic Lungs: Clear to auscultation MUSCULOSKELETAL: No joint tenderness, No deformity Neuro: Normal speech Psych/Mental Status: Mental status NL Skin: No rashes, No breakdown Diagnosis Problem List Problems Medical Problems: (1) Appendicitis Status: Acute Assessment Assessment Problems Medical Problems: (1) Appendicitis Status: Acute post op fevers Plan:POD#2 LAP appendectomy-gangrenous appendix removed. fever 102 ,ID consulted , c/s done pt on [employer] labs today. Plan Plan of Care Problems Medical Problems: (1) Appendicitis Status: Acute Comment Review of Relevant I have reviewed the following items reny (where applicable) has been applied. Labs Laboratory Tests Test 06/01/21 11:33 06/01/21 16:54 06/01/21 20:31 06/02/21 08:01 Glucose (Fingerstick) 169 mg/dL (70-99) 134 mg/dL (70-99) 163 mg/dL (70-99) 98 mg/dL (70-99) Medications Current Medications Acetaminophen (Tylenol) 650 mg PRN Q6HRS PRN PO MILD PAIN / TEMP > 100.3'F Last administered on 06/02/21at 03:41; Start 06/02/21 at 03:30 Lactobacillus Rhamnosus (Culturelle) 1 cap BID PO Last administered on 06/02/21at 09:26; Start 06/01/21 at 21:00 Vitals/I & O Vital Sign - Last 24 Hours 06/01/21 06/01/21 06/01/21 06/01/21 09:58 11:00 11:19 15:00 Temp 98.5 97.8 98.5 97.8 Pulse 77 80 Resp 20 20 B/P (MAP) 103/65 (78) 110/63 (79) Pulse Ox 95 96 95 94 O2 Delivery Room Air Room Air Room Air Room Air O2 Flow Rate 2.0 06/01/21 06/01/21 06/01/21 06/02/21 19:00 20:15 23:00 03:00 Temp 101.5 101.0 102.9 101.5 101.0 102.9 Pulse 88 87 98 Resp 18 16 18 B/P (MAP) 146/95 (112) 128/72 (90) 135/85 (102) Pulse Ox 93 93 92 O2 Delivery Room Air 06/02/21 06/02/21 05:54 07:00 Temp 99.7 99.9 99.7 99.9 Pulse 79 Resp 18 B/P (MAP) 110/74 (86) Pulse Ox 94 O2 Delivery Room Air Intake and Output 06/01/21 06/01/21 06/02/21 15:00 23:00 07:00 Intake Total 480 ml 810 ml 850 ml Balance 480 ml 810 ml 850 ml Justifications for Admission Other Justification MELONY KIMBLE MD Jun 02, 2021 09:44
[2021-06-02 09:53] LABS: BASO % 0 % (0-3); EOS # 0.2 x10^3/uL (0.0-0.7); EOS % 3 % (0-3); HEMATOCRIT 40.6 % (39.0-53.0); HEMOGLOBIN 13.2 g/dL (13.0-17.5); LYMPH # 0.6 x10^3/uL (1.0-4.8); LYMPH % 9 % (24-48); MEAN CORPUSCULAR HEMOGLOBIN 25 pg (25-35); MEAN CORPUSCULAR HGB CONC 33 g/dL (31-37); MEAN CORPUSCULAR VOLUME 78 fL (79-100); MONO # 0.4 x10^3/uL (0.0-1.1); MONO % 5 % (0-9); NEUT # 5.8 x10^3/uL (1.8-7.7); NEUT % 82 % (31-73); PLATELET COUNT 180 x10^3/uL (140-400); RED BLOOD COUNT 5.23 x10^6/uL (4.30-5.70); RED CELL DISTRIBUTION WIDTH 15.2 % (11.5-14.5)
[2021-06-02 10:18] LABS: CALCIUM 8.3 mg/dL (8.5-10.1); CREATININE 0.9 mg/dL (0.7-1.3); GFR 89.3; POTASSIUM 3.4 mmol/L (3.5-5.1)
[2021-06-02 11:00] VITALS: BP 139/76
[2021-06-02] MEDS ORDERED: POTASSIUM CHLORIDE 20 MEQ TABLET.ER. PO ONE (12:30)
--- NOTE | 2021-06-02 12:47 | PDOC ---
SURGICAL PROGRESS NOTE DATE: 06/02/21 TIME: 12:46 Subjective feels well no pain Vital Signs Vital Signs Date Time Temp Pulse Resp B/P (MAP) Pulse Ox O2 Delivery O2 Flow Rate FiO2 06/02/21 11:00 99.8 101 18 139/76 (97) 93 Room Air 99.8 06/01/21 09:58 2.0 I&O Intake and Output 06/02/21 07:00 Intake Total 2140 ml Balance 2140 ml Intake Oral 2040 ml IV Total 100 ml # Voids 4 General: Alert, Oriented X3, Cooperative Abdomen: Soft, Other (lap dressings dry) Labs Laboratory Tests Test 05/31/21 14:55 05/31/21 16:41 06/01/21 06:00 06/01/21 07:26 Glucose (Fingerstick) 113 mg/dL (70-99) 155 mg/dL (70-99) 124 mg/dL (70-99) White Blood Count 11.5 x10^3/uL (4.0-11.0) Red Blood Count 4.80 x10^6/uL (4.30-5.70) Hemoglobin 12.3 g/dL (13.0-17.5) Hematocrit 37.4 % (39.0-53.0) Mean Corpuscular Volume 78 fL (79-100) Mean Corpuscular Hemoglobin 26 pg (25-35) Mean Corpuscular Hemoglobin Concent 33 g/dL (31-37) Red Cell Distribution Width 15.3 % (11.5-14.5) Platelet Count 162 x10^3/uL (140-400) Neutrophils (%) (Auto) 90 % (31-73) Lymphocytes (%) (Auto) 5 % (24-48) Monocytes (%) (Auto) 5 % (0-9) Eosinophils (%) (Auto) 0 % (0-3) Basophils (%) (Auto) 0 % (0-3) Neutrophils # (Auto) 10.3 x10^3/uL (1.8-7.7) Lymphocytes # (Auto) 0.6 x10^3/uL (1.0-4.8) Monocytes # (Auto) 0.6 x10^3/uL (0.0-1.1) Eosinophils # (Auto) 0.0 x10^3/uL (0.0-0.7) Basophils # (Auto) 0.0 x10^3/uL (0.0-0.2) Sodium Level 138 mmol/L (136-145) Potassium Level 3.3 mmol/L (3.5-5.1) Chloride Level 105 mmol/L (98-107) Carbon Dioxide Level 22 mmol/L (21-32) Anion Gap 11 (6-14) Blood Urea Nitrogen 20 mg/dL (8-26) Creatinine 0.7 mg/dL (0.7-1.3) Estimated GFR (Cockcroft-Gault) 119.4 BUN/Creatinine Ratio 29 (6-20) Glucose Level 117 mg/dL (70-99) Calcium Level 8.5 mg/dL (8.5-10.1) Total Bilirubin 0.5 mg/dL (0.2-1.0) Aspartate Amino Transf (AST/SGOT) 21 U/L (15-37) Alanine Aminotransferase (ALT/SGPT) 45 U/L (16-63) Alkaline Phosphatase 65 U/L (46-116) Total Protein 7.1 g/dL (6.4-8.2) Albumin 2.9 g/dL (3.4-5.0) Albumin/Globulin Ratio 0.7 (1.0-1.7) Test 06/01/21 11:33 06/01/21 16:54 06/01/21 20:31 06/02/21 06:30 Glucose (Fingerstick) 169 mg/dL (70-99) 134 mg/dL (70-99) 163 mg/dL (70-99) White Blood Count 7.0 x10^3/uL (4.0-11.0) Red Blood Count 5.23 x10^6/uL (4.30-5.70) Hemoglobin 13.2 g/dL (13.0-17.5) Hematocrit 40.6 % (39.0-53.0) Mean Corpuscular Volume 78 fL (79-100) Mean Corpuscular Hemoglobin 25 pg (25-35) Mean Corpuscular Hemoglobin Concent 33 g/dL (31-37) Red Cell Distribution Width 15.2 % (11.5-14.5) Platelet Count 180 x10^3/uL (140-400) Neutrophils (%) (Auto) 82 % (31-73) Lymphocytes (%) (Auto) 9 % (24-48) Monocytes (%) (Auto) 5 % (0-9) Eosinophils (%) (Auto) 3 % (0-3) Basophils (%) (Auto) 0 % (0-3) Neutrophils # (Auto) 5.8 x10^3/uL (1.8-7.7) Lymphocytes # (Auto) 0.6 x10^3/uL (1.0-4.8) Monocytes # (Auto) 0.4 x10^3/uL (0.0-1.1) Eosinophils # (Auto) 0.2 x10^3/uL (0.0-0.7) Basophils # (Auto) 0.0 x10^3/uL (0.0-0.2) Sodium Level 136 mmol/L (136-145) Potassium Level 3.4 mmol/L (3.5-5.1) Chloride Level 101 mmol/L (98-107) Carbon Dioxide Level 23 mmol/L (21-32) Anion Gap 12 (6-14) Blood Urea Nitrogen 18 mg/dL (8-26) Creatinine 0.9 mg/dL (0.7-1.3) Estimated GFR (Cockcroft-Gault) 89.3 Glucose Level 99 mg/dL (70-99) Calcium Level 8.3 mg/dL (8.5-10.1) Test 06/02/21 08:01 06/02/21 12:01 Glucose (Fingerstick) 98 mg/dL (70-99) 181 mg/dL (70-99) Laboratory Tests Test 06/01/21 16:54 06/01/21 20:31 06/02/21 06:30 06/02/21 08:01 Glucose (Fingerstick) 134 mg/dL (70-99) 163 mg/dL (70-99) 98 mg/dL (70-99) White Blood Count 7.0 x10^3/uL (4.0-11.0) Red Blood Count 5.23 x10^6/uL (4.30-5.70) Hemoglobin 13.2 g/dL (13.0-17.5) Hematocrit 40.6 % (39.0-53.0) Mean Corpuscular Volume 78 fL (79-100) Mean Corpuscular Hemoglobin 25 pg (25-35) Mean Corpuscular Hemoglobin Concent 33 g/dL (31-37) Red Cell Distribution Width 15.2 % (11.5-14.5) Platelet Count 180 x10^3/uL (140-400) Neutrophils (%) (Auto) 82 % (31-73) Lymphocytes (%) (Auto) 9 % (24-48) Monocytes (%) (Auto) 5 % (0-9) Eosinophils (%) (Auto) 3 % (0-3) Basophils (%) (Auto) 0 % (0-3) Neutrophils # (Auto) 5.8 x10^3/uL (1.8-7.7) Lymphocytes # (Auto) 0.6 x10^3/uL (1.0-4.8) Monocytes # (Auto) 0.4 x10^3/uL (0.0-1.1) Eosinophils # (Auto) 0.2 x10^3/uL (0.0-0.7) Basophils # (Auto) 0.0 x10^3/uL (0.0-0.2) Sodium Level 136 mmol/L (136-145) Potassium Level 3.4 mmol/L (3.5-5.1) Chloride Level 101 mmol/L (98-107) Carbon Dioxide Level 23 mmol/L (21-32) Anion Gap 12 (6-14) Blood Urea Nitrogen 18 mg/dL (8-26) Creatinine 0.9 mg/dL (0.7-1.3) Estimated GFR (Cockcroft-Gault) 89.3 Glucose Level 99 mg/dL (70-99) Calcium Level 8.3 mg/dL (8.5-10.1) Test 06/02/21 12:01 Glucose (Fingerstick) 181 mg/dL (70-99) Problem List Problems Medical Problems: (1) Appendicitis Status: Acute Assessment/Plan s/p appy gangrenous fevers, continue abx if fevers persist repeat ct 1- 2 days Justicifation of Admission Dx: Justifications for Admission: Justification of Admission Dx: Yes TERRY RAYO [facility] Jun 02, 2021 12:47
[2021-06-02 15:00] VITALS: BP 145/86
[2021-06-02 19:00] VITALS: BP 113/50
--- NOTE | 2021-06-02 21:36 | CONS ---
DATE OF CONSULTATION: 06/02/2021 REQUESTING PHYSICIAN: Darian Canada MD REASON FOR CONSULTATION: Fever and appendicitis. HISTORY OF PRESENT ILLNESS: This is a 50-year-old [place]otian gentleman who came in with abdominal pain. His CT showed appendicitis. The patient underwent appendicectomy on , it was gangrenous appendicitis. The patient has been started on Zosyn. The patient had 103 fever today, hence consultation. The patient denies any complaints right now. The patient denies any nausea, vomiting, diarrhea, chest pain, shortness of breath, abdominal pain, urinary symptoms, bowel symptoms, headache or visual symptoms. PAST MEDICAL HISTORY: Positive for diabetes mellitus, hypertension, hyperlipidemia. SOCIAL HISTORY: Negative for smoking, alcohol, drug use. ALLERGIES: No known drug allergies. CURRENT MEDICATIONS: Reviewed. REVIEW OF SYSTEMS: As per HPI. All other systems reviewed are negative. PHYSICAL EXAMINATION: GENERAL: Alert, oriented gentleman, not in distress. VITAL SIGNS: Temperature 99.8 with T-max 102.9, pulse 101, respirations 18, blood pressure 139/76. HEENT: Both pupils are round and reacting. No conjunctival lesion, no lesion in the mouth. NECK: Supple, no JVP, no lymphadenopathy. LUNGS: Clear. HEART: S1, S2, regular. ABDOMEN: Soft, nontender, no organomegaly. EXTREMITIES: No edema, cyanosis. SKIN: Unremarkable. NEUROLOGIC: The patient is alert, awake, appropriate. No focal neurologic deficit. LABORATORY DATA: White count is 7000, down from 11.5. BUN and creatinine is normal. COVID is negative. CT of the abdomen and pelvis reviewed with acute uncomplicated appendicitis. IMPRESSION: 1. Acute appendicitis, status post appendicectomy, gangrenous appendicitis. 2. Fever. 3. Leukocytosis. 4. Diabetes. 5. Hypertension. RECOMMENDATIONS: Agree with Zosyn. Continue supportive care. If he gets another fever spike, then we may consider adding Zyvox. Thank you very much, Dr. Canada, for giving me opportunity to participate in this patient's care. NAOMI/MENDEL WALLACE: NAOMI/monica TID: [id number]
[2021-06-02 23:07] VITALS: BP 116/61
[2021-06-03] MEDS: PIPERACILLIN/TAZOBACTAM 3.375 GM in IV NORMAL SALINE 50ML 50 ML IV SCH ×4 (00:18→18:13)
[2021-06-03 03:00] VITALS: BP 128/78
[2021-06-03 07:00] VITALS: BP 118/65
[2021-06-03] MEDS: LACTOBACILLUS RHAMNOSUS GG 1 CAPSULE. PO SCH ×2 (09:14→21:58)
--- NOTE | 2021-06-03 09:15 | PDOC ---
SURGICAL PROGRESS NOTE DATE: 06/03/21 TIME: 09:15 Subjective denies pain no nausea Vital Signs Vital Signs Date Time Temp Pulse Resp B/P (MAP) Pulse Ox O2 Delivery O2 Flow Rate FiO2 06/03/21 07:00 99.1 75 14 118/65 (82) 94 Room Air 99.1 I&O Intake and Output 06/03/21 07:00 Intake Total 2130 ml Output Total 750 ml Balance 1380 ml Intake Oral 870 ml Other 1260 ml Output Urine Total 750 ml # Voids 3 General: Alert, Oriented X3, Cooperative Abdomen: Soft, No tenderness Labs Laboratory Tests Test 06/01/21 11:33 06/01/21 16:54 06/01/21 20:31 06/02/21 06:30 Glucose (Fingerstick) 169 mg/dL (70-99) 134 mg/dL (70-99) 163 mg/dL (70-99) White Blood Count 7.0 x10^3/uL (4.0-11.0) Red Blood Count 5.23 x10^6/uL (4.30-5.70) Hemoglobin 13.2 g/dL (13.0-17.5) Hematocrit 40.6 % (39.0-53.0) Mean Corpuscular Volume 78 fL (79-100) Mean Corpuscular Hemoglobin 25 pg (25-35) Mean Corpuscular Hemoglobin Concent 33 g/dL (31-37) Red Cell Distribution Width 15.2 % (11.5-14.5) Platelet Count 180 x10^3/uL (140-400) Neutrophils (%) (Auto) 82 % (31-73) Lymphocytes (%) (Auto) 9 % (24-48) Monocytes (%) (Auto) 5 % (0-9) Eosinophils (%) (Auto) 3 % (0-3) Basophils (%) (Auto) 0 % (0-3) Neutrophils # (Auto) 5.8 x10^3/uL (1.8-7.7) Lymphocytes # (Auto) 0.6 x10^3/uL (1.0-4.8) Monocytes # (Auto) 0.4 x10^3/uL (0.0-1.1) Eosinophils # (Auto) 0.2 x10^3/uL (0.0-0.7) Basophils # (Auto) 0.0 x10^3/uL (0.0-0.2) Sodium Level 136 mmol/L (136-145) Potassium Level 3.4 mmol/L (3.5-5.1) Chloride Level 101 mmol/L (98-107) Carbon Dioxide Level 23 mmol/L (21-32) Anion Gap 12 (6-14) Blood Urea Nitrogen 18 mg/dL (8-26) Creatinine 0.9 mg/dL (0.7-1.3) Estimated GFR (Cockcroft-Gault) 89.3 Glucose Level 99 mg/dL (70-99) Calcium Level 8.3 mg/dL (8.5-10.1) Test 06/02/21 08:01 06/02/21 12:01 Glucose (Fingerstick) 98 mg/dL (70-99) 181 mg/dL (70-99) Laboratory Tests Test 06/02/21 12:01 Glucose (Fingerstick) 181 mg/dL (70-99) Problem List Problems Medical Problems: (1) Appendicitis Status: Acute Assessment/Plan ongoing fevers, will repeat CT Justicifation of Admission Dx: Justifications for Admission: Justification of Admission Dx: Yes TERRY RAYO EMERGENCY PLANNING AND RESPONSE MANAGER Jun 03, 2021 09:15
[2021-06-03 11:00] VITALS: BP 113/66
[2021-06-03] MEDS ORDERED: IOHEXOL 300 MG/ML 100ML VIAL. IV ONE (11:00)
[2021-06-03] MEDS ORDERED: CONTRAST GIVEN. MC PRN (11:00)
[2021-06-03] MEDS ORDERED: IOHEXOL 240 MG/ML 50ML VIAL. PO ONE (11:00)
--- NOTE | 2021-06-03 12:55 | PDOC ---
PROGRESS NOTES Date of Service: DATE: 06/03/21 TIME: 12:53 Subjective Subjective fever 102 again last night Objective Objective Vital Signs Date Time Temp Pulse Resp B/P (MAP) Pulse Ox O2 Delivery O2 Flow Rate FiO2 06/03/21 08:30 Room Air 06/03/21 07:00 99.1 75 14 118/65 (82) 94 99.1 Intake and Output 06/03/21 06:59 Intake Total 2130 ml Output Total 750 ml Balance 1380 ml Intake Oral 870 ml Other 1260 ml Output Urine Total 750 ml # Voids 3 Physical Exam Abdomen: Soft, No tenderness Extremities: No clubbing, No cyanosis General: Alert, Oriented X3, Cooperative HEENT: Atraumatic Lungs: Clear to auscultation MUSCULOSKELETAL: No joint tenderness, No deformity Neuro: Normal speech Psych/Mental Status: Mental status NL Skin: No rashes, No breakdown Diagnosis Problem List Problems Medical Problems: (1) Appendicitis Status: Acute Assessment Assessment Problems Medical Problems: (1) Appendicitis Status: Acute post op fevers Plan:POD#3 LAP appendectomy-gangrenous appendix removed. fever 102 ,ID consulted , c/s done pt on Zosyn labs tomorrow, on iv fluids CT scan abd and pelvis today -r/o abscess. Plan Plan of Care Problems Medical Problems: (1) Appendicitis Status: Acute Comment Review of Relevant I have reviewed the following items reny (where applicable) has been applied. Labs Microbiology 06/02/21 Blood Culture - Preliminary, Resulted NO GROWTH AFTER 1 DAY Medications Current Medications Info (CONTRAST GIVEN -- Rx MONITORING) 1 each PRN DAILY PRN MC SEE COMMENTS; Start 06/03/21 at 11:00; Stop 06/05/21 at 10:59 Iohexol (Omnipaque 240 Mg/ml) 30 ml 1X ONCE PO ; Start 06/03/21 at 11:00; Stop 06/03/21 at 11:01; Status DC Iohexol (Omnipaque 300 Mg/ml) 75 ml 1X ONCE IV ; Start 06/03/21 at 11:00; Stop 06/03/21 at 11:01; Status DC Vitals/I & O Vital Sign - Last 24 Hours 06/02/21 06/02/21 06/02/21 06/02/21 15:00 19:00 19:40 23:07 Temp 102.9 99.6 102.0 102.9 99.6 102.0 Pulse 84 82 84 Resp 18 14 14 B/P (MAP) 145/86 (105) 113/50 (71) 116/61 (79) Pulse Ox 94 93 93 O2 Delivery Room Air Room Air Room Air Room Air 06/03/21 06/03/21 06/03/21 03:00 07:00 08:30 Temp 99.0 99.1 99.0 99.1 Pulse 78 75 Resp 14 14 B/P (MAP) 128/78 (95) 118/65 (82) Pulse Ox 97 94 O2 Delivery Room Air Room Air Room Air Intake and Output 06/02/21 06/02/21 06/03/21 14:59 22:59 06:59 Intake Total 1810 ml 320 ml Output Total 750 ml Balance 1810 ml -430 ml Justifications for Admission Other Justification MELONY KIMBLE MD Jun 03, 2021 12:55
[2021-06-03] MEDS ORDERED: DOCUSATE SODIUM 100 MG CAPSULE. PO PRN (13:30)
[2021-06-03] MEDS: IV NORMAL SALINE 1000ML BAG 1,000 ML IV SCH (13:43)
--- NOTE | 2021-06-03 14:15 | PDOC ---
Infectious Disease Note Subjective Subjective Patient is feeling better ROS ROS No nausea vomiting diarrhea Vital Sign Vital Signs Vital Signs Date Time Temp Pulse Resp B/P (MAP) Pulse Ox O2 Delivery O2 Flow Rate FiO2 06/03/21 11:00 98.7 80 14 113/66 (82) 94 Room Air 98.7 Physical Exam PHYSICAL EXAM GENERAL: Alert, oriented gentleman, not in distress. VITAL SIGNS: Stable HEENT: Both pupils are round and reacting. No conjunctival lesion, no lesion in the mouth. NECK: Supple, no JVP, no lymphadenopathy. LUNGS: Clear. HEART: S1, S2, regular. ABDOMEN: Soft, nontender, no organomegaly. EXTREMITIES: No edema, cyanosis. SKIN: Unremarkable. NEUROLOGIC: The patient is alert, awake, appropriate. No focal neurologic deficit. Labs Micro Microbiology 06/02/21 Blood Culture - Preliminary, Resulted NO GROWTH AFTER 1 DAY Objective Assessment IMPRESSION: 1. Acute appendicitis, status post appendicectomy, gangrenous appendicitis. 2. Fever. 3. Leukocytosis. 4. Diabetes. 5. Hypertension. Plan Plan of Care Continue antibiotics soon to be able to change to oral for discharge afebrile for 24 hours KIMBERLY WARNER MD Jun 03, 2021 14:14
[2021-06-03 15:00] VITALS: BP 109/69
--- NOTE | 2021-06-03 16:31 | RAD ---
Exam: CT of abdomen and pelvis with contrast INDICATION: Status post appendectomy, fevers TECHNIQUE: Sequential axial images through the abdomen and pelvis obtained following the administrati on of 75 mL of Isovue-370 IV contrast. Sagittal and coronal reformatted images were reconstructed fro m the axial data and reviewed. Exposure: One or more of the following in the visualized dose reduction techniques were utilized for this examination: 1. Automated exposure control 2. Adjustment of the MA and/or KV according to patient size 3. Use of iterative of reconstructive technique Comparisons: 06/06/2021 FINDINGS: Heart size is normal. No pericardial effusion. Strandy opacities at dependent portion lungs likely re presenting atelectasis. No pleural effusion. Liver, spleen, pancreas, gallbladder and adrenals are unremarkable. No perinephric inflammation or hydronephrosis. No renal or ureteral calculi are identified. Bladder is decompressed not well evaluated. Prostate is not enlarged. Moderate amount of stool is noted in the colon. Appendix is absent. Small bowel is unremarkable. No f ree intra-abdominal air or fluid. No obstruction. Abdominal aorta has a normal course and caliber. Abdominal vasculature is patent. No enlarged intra-abdominal lymph nodes are identified. No suspicious osseous lesions or acute fractures. IMPRESSION: Appendectomy changes. There is mild adjacent fat stranding which could be sequela of recent surgery. No discrete fluid collection to suggest abscess. Electronically signed by: Irasema Rhodes MD (06/03/2021 4:28 PM) [facility]
[2021-06-03] MEDS: ACETAMINOPHEN 325 MG TABLET. PO PRN (18:12)
[2021-06-03 19:00] VITALS: BP 104/62
[2021-06-03 23:00] VITALS: BP 116/72
[2021-06-04] MEDS: IV NORMAL SALINE 1000ML BAG 1,000 ML IV SCH (00:06)
[2021-06-04] MEDS: PIPERACILLIN/TAZOBACTAM 3.375 GM in IV NORMAL SALINE 50ML 50 ML IV SCH ×2 (00:06→05:26)
[2021-06-04 03:00] VITALS: BP 151/90
[2021-06-04 06:19] VITALS: BP 144/72
[2021-06-04 07:35] LABS: BASO % 1 % (0-3); EOS # 0.3 x10^3/uL (0.0-0.7); EOS % 5 % (0-3); HEMATOCRIT 40.3 % (39.0-53.0); HEMOGLOBIN 13.2 g/dL (13.0-17.5); LYMPH # 1.5 x10^3/uL (1.0-4.8); LYMPH % 26 % (24-48); MEAN CORPUSCULAR HEMOGLOBIN 25 pg (25-35); MEAN CORPUSCULAR HGB CONC 33 g/dL (31-37); MEAN CORPUSCULAR VOLUME 76 fL (79-100); MONO # 0.9 x10^3/uL (0.0-1.1); MONO % 15 % (0-9); NEUT # 3.1 x10^3/uL (1.8-7.7); NEUT % 54 % (31-73); PLATELET COUNT 214 x10^3/uL (140-400); RED CELL DISTRIBUTION WIDTH 14.9 % (11.5-14.5); WHITE BLOOD COUNT 5.8 x10^3/uL (4.0-11.0)
[2021-06-04 07:54] LABS: ALBUMIN 2.5 g/dL (3.4-5.0); ALBUMIN/GLOBULIN RATIO 0.5 (1.0-1.7); CALCIUM 8.7 mg/dL (8.5-10.1); CREATININE 0.7 mg/dL (0.7-1.3); GFR 119.4; POTASSIUM 3.6 mmol/L (3.5-5.1); TOTAL BILIRUBIN 0.4 mg/dL (0.2-1.0); TOTAL PROTEIN 7.4 g/dL (6.4-8.2)
[2021-06-04] MEDS: LACTOBACILLUS RHAMNOSUS GG 1 CAPSULE. PO SCH (09:00)
[2021-06-04 10:05] LABS: % BANDS 18 % (0-9); % BASOS 1 % (0-3); % EOS 5 % (0-5); % LYMPHS 37 % (24-48); % MONOS 16 % (0-10); % MYELOS 1 % (0-0); % SEGS 22 % (35-66)
[2021-06-04 10:06] LABS: PLT ESTIMATE ADEQUATE (ADEQUATE)
[2021-06-04 11:00] VITALS: BP 130/87
--- NOTE | 2021-06-04 11:24 | PDOC ---
Infectious Disease Note Subjective Subjective Patient is feeling better ROS ROS no n/v/d/ Vital Sign Vital Signs Vital Signs Date Time Temp Pulse Resp B/P (MAP) Pulse Ox O2 Delivery O2 Flow Rate FiO2 06/04/21 08:00 Room Air 2.0 06/04/21 06:19 98.6 68 16 144/72 (96) 92 98.6 Physical Exam PHYSICAL EXAM GENERAL: Alert, oriented gentleman, not in distress. VITAL SIGNS: Stable HEENT: Both pupils are round and reacting. No conjunctival lesion, no lesion in the mouth. NECK: Supple, no JVP, no lymphadenopathy. LUNGS: Clear. HEART: S1, S2, regular. ABDOMEN: Soft, nontender, no organomegaly. EXTREMITIES: No edema, cyanosis. SKIN: Unremarkable. NEUROLOGIC: The patient is alert, awake, appropriate. No focal neurologic deficit. Labs Lab Laboratory Tests Test 06/04/21 06:45 White Blood Count 5.8 x10^3/uL (4.0-11.0) Red Blood Count 5.30 x10^6/uL (4.30-5.70) Hemoglobin 13.2 g/dL (13.0-17.5) Hematocrit 40.3 % (39.0-53.0) Mean Corpuscular Volume 76 fL (79-100) Mean Corpuscular Hemoglobin 25 pg (25-35) Mean Corpuscular Hemoglobin Concent 33 g/dL (31-37) Red Cell Distribution Width 14.9 % (11.5-14.5) Platelet Count 214 x10^3/uL (140-400) Neutrophils (%) (Auto) 54 % (31-73) Lymphocytes (%) (Auto) 26 % (24-48) Monocytes (%) (Auto) 15 % (0-9) Eosinophils (%) (Auto) 5 % (0-3) Basophils (%) (Auto) 1 % (0-3) Neutrophils # (Auto) 3.1 x10^3/uL (1.8-7.7) Lymphocytes # (Auto) 1.5 x10^3/uL (1.0-4.8) Monocytes # (Auto) 0.9 x10^3/uL (0.0-1.1) Eosinophils # (Auto) 0.3 x10^3/uL (0.0-0.7) Basophils # (Auto) 0.0 x10^3/uL (0.0-0.2) Segmented Neutrophils % 22 % (35-66) Band Neutrophils % 18 % (0-9) Lymphocytes % 37 % (24-48) Monocytes % 16 % (0-10) Eosinophils % 5 % (0-5) Basophils % 1 % (0-3) Myelocytes % 1 % (0-0) Platelet Estimate Adequate (ADEQUATE) Sodium Level 136 mmol/L (136-145) Potassium Level 3.6 mmol/L (3.5-5.1) Chloride Level 102 mmol/L (98-107) Carbon Dioxide Level 24 mmol/L (21-32) Anion Gap 10 (6-14) Blood Urea Nitrogen 15 mg/dL (8-26) Creatinine 0.7 mg/dL (0.7-1.3) Estimated GFR (Cockcroft-Gault) 119.4 BUN/Creatinine Ratio 21 (6-20) Glucose Level 138 mg/dL (70-99) Calcium Level 8.7 mg/dL (8.5-10.1) Total Bilirubin 0.4 mg/dL (0.2-1.0) Aspartate Amino Transf (AST/SGOT) 26 U/L (15-37) Alanine Aminotransferase (ALT/SGPT) 57 U/L (16-63) Alkaline Phosphatase 158 U/L (46-116) Total Protein 7.4 g/dL (6.4-8.2) Albumin 2.5 g/dL (3.4-5.0) Albumin/Globulin Ratio 0.5 (1.0-1.7) Micro Microbiology 06/02/21 Blood Culture - Preliminary, Resulted NO GROWTH AFTER 1 DAY Objective Assessment IMPRESSION: 1. Acute appendicitis, status post appendicectomy, gangrenous appendicitis. 2. Fever. 3. Leukocytosis. 4. Diabetes. 5. Hypertension. Plan Plan of Care change to po augmentin for dc ct noted KIMBERLY WARNER MD Jun 04, 2021 11:24
--- NOTE | 2021-06-04 11:24 | PDOC ---
IM PROGRESS NOTES- Subjective Subjective Patient denies any abdominal pain, nausea or vomiting. He wants to go home today. Objective Vitals/I&O Vital Signs Date Time Temp Pulse Resp B/P (MAP) Pulse Ox O2 Delivery O2 Flow Rate FiO2 06/04/21 08:00 Room Air 2.0 06/04/21 06:19 98.6 68 16 144/72 (96) 92 98.6 Physical Exam Physical Exam General Appearance - alert and in no distress Chest - decreased breath sounds at bases Heart - S1 and S2 normal Abdomen - soft, status post surgery Neurological - alert and oriented Musculoskeletal - generalized weakness Extremities - no edema Labs Laboratory Tests Test 06/04/21 06:45 White Blood Count 5.8 x10^3/uL (4.0-11.0) Red Blood Count 5.30 x10^6/uL (4.30-5.70) Hemoglobin 13.2 g/dL (13.0-17.5) Hematocrit 40.3 % (39.0-53.0) Mean Corpuscular Volume 76 fL (79-100) L Mean Corpuscular Hemoglobin 25 pg (25-35) Mean Corpuscular Hemoglobin Concent 33 g/dL (31-37) Red Cell Distribution Width 14.9 % (11.5-14.5) H Platelet Count 214 x10^3/uL (140-400) Neutrophils (%) (Auto) 54 % (31-73) Lymphocytes (%) (Auto) 26 % (24-48) Monocytes (%) (Auto) 15 % (0-9) H Eosinophils (%) (Auto) 5 % (0-3) H Basophils (%) (Auto) 1 % (0-3) Neutrophils # (Auto) 3.1 x10^3/uL (1.8-7.7) Lymphocytes # (Auto) 1.5 x10^3/uL (1.0-4.8) Monocytes # (Auto) 0.9 x10^3/uL (0.0-1.1) Eosinophils # (Auto) 0.3 x10^3/uL (0.0-0.7) Basophils # (Auto) 0.0 x10^3/uL (0.0-0.2) Segmented Neutrophils % 22 % (35-66) L Band Neutrophils % 18 % (0-9) H Lymphocytes % 37 % (24-48) Monocytes % 16 % (0-10) H Eosinophils % 5 % (0-5) Basophils % 1 % (0-3) Myelocytes % 1 % (0-0) H Platelet Estimate Adequate (ADEQUATE) Sodium Level 136 mmol/L (136-145) Potassium Level 3.6 mmol/L (3.5-5.1) Chloride Level 102 mmol/L (98-107) Carbon Dioxide Level 24 mmol/L (21-32) Anion Gap 10 (6-14) Blood Urea Nitrogen 15 mg/dL (8-26) Creatinine 0.7 mg/dL (0.7-1.3) Estimated GFR (Cockcroft-Gault) 119.4 BUN/Creatinine Ratio 21 (6-20) H Glucose Level 138 mg/dL (70-99) H Calcium Level 8.7 mg/dL (8.5-10.1) Total Bilirubin 0.4 mg/dL (0.2-1.0) Aspartate Amino Transferase (AST) 26 U/L (15-37) Alanine Aminotransferase (ALT) 57 U/L (16-63) Alkaline Phosphatase 158 U/L (46-116) H Total Protein 7.4 g/dL (6.4-8.2) Albumin 2.5 g/dL (3.4-5.0) L Albumin/Globulin Ratio 0.5 (1.0-1.7) L Laboratory Tests 06/04/21 06:45 Laboratory Tests 06/04/21 06:45 Meds Current Medications Medications (Trade) Dose Ordered Sig/Donnie Route PRN Reason Start Time Stop Time Status Last Admin Dose Admin Sodium Chloride 1,000 ml @ 100 mls/hr Q10H IV 06/03/21 13:00 06/04/21 00:06 Assessment Assessment Problems Medical Problems: (1) Appendicitis Status: Acute post op fevers Plan:POD#3 LAP appendectomy-gangrenous appendix removed. consulted , c/s done pt on Zosyn labs tomorrow, on iv fluids CT scan abd and pelvis on May 03, 2021 did not show any abscess. Potassium 3.6. Replace. Blood culture no growth so far. Clinically improving Discussed with Dr. Osuna. He has also discussed with surgery and it is okay for patient to go home. Discharge home on p.o. Augmentin. Follow-up with in 5 days. Plan Plan For more details regarding further plans, please refer to the orders. Justifications for Admission Other Justification LANCE MORRISON MD Jun 04, 2021 11:24
[2021-06-04] MEDS ORDERED: ACET325T21 PO (12:34)
--- NOTE | 2021-06-04 12:36 | DISCH ---
DISCHARGE INSTRUCTIONS Condition on Discharge Condition on Discharge: Stable Activity After Discharge Activity Instructions for Disc: Activity as tolerated Wound Incision Care Wound/Incision Care: Change dressing Contacting the DRSilvino after DC Call your doctor for: Concerns you may have Follow-Up Follow up with: in 5 days Follow Up With: LANCE Ha MD Jun 04, 2021 12:36
--- NOTE | 2021-06-04 13:06 | PDOC ---
SURGICAL PROGRESS NOTE DATE: 06/04/21 TIME: 13:05 Subjective doing well tolerating diet no pain Vital Signs Vital Signs Date Time Temp Pulse Resp B/P (MAP) Pulse Ox O2 Delivery O2 Flow Rate FiO2 06/04/21 11:00 98.4 75 14 130/87 (101) 96 Room Air 98.4 06/04/21 08:00 2.0 General: Alert, Oriented X3, Cooperative Abdomen: Soft, Other (ND) Labs Laboratory Tests Test 06/04/21 06:45 White Blood Count 5.8 x10^3/uL (4.0-11.0) Red Blood Count 5.30 x10^6/uL (4.30-5.70) Hemoglobin 13.2 g/dL (13.0-17.5) Hematocrit 40.3 % (39.0-53.0) Mean Corpuscular Volume 76 fL (79-100) Mean Corpuscular Hemoglobin 25 pg (25-35) Mean Corpuscular Hemoglobin Concent 33 g/dL (31-37) Red Cell Distribution Width 14.9 % (11.5-14.5) Platelet Count 214 x10^3/uL (140-400) Neutrophils (%) (Auto) 54 % (31-73) Lymphocytes (%) (Auto) 26 % (24-48) Monocytes (%) (Auto) 15 % (0-9) Eosinophils (%) (Auto) 5 % (0-3) Basophils (%) (Auto) 1 % (0-3) Neutrophils # (Auto) 3.1 x10^3/uL (1.8-7.7) Lymphocytes # (Auto) 1.5 x10^3/uL (1.0-4.8) Monocytes # (Auto) 0.9 x10^3/uL (0.0-1.1) Eosinophils # (Auto) 0.3 x10^3/uL (0.0-0.7) Basophils # (Auto) 0.0 x10^3/uL (0.0-0.2) Segmented Neutrophils % 22 % (35-66) Band Neutrophils % 18 % (0-9) Lymphocytes % 37 % (24-48) Monocytes % 16 % (0-10) Eosinophils % 5 % (0-5) Basophils % 1 % (0-3) Myelocytes % 1 % (0-0) Platelet Estimate Adequate (ADEQUATE) Sodium Level 136 mmol/L (136-145) Potassium Level 3.6 mmol/L (3.5-5.1) Chloride Level 102 mmol/L (98-107) Carbon Dioxide Level 24 mmol/L (21-32) Anion Gap 10 (6-14) Blood Urea Nitrogen 15 mg/dL (8-26) Creatinine 0.7 mg/dL (0.7-1.3) Estimated GFR (Cockcroft-Gault) 119.4 BUN/Creatinine Ratio 21 (6-20) Glucose Level 138 mg/dL (70-99) Calcium Level 8.7 mg/dL (8.5-10.1) Total Bilirubin 0.4 mg/dL (0.2-1.0) Aspartate Amino Transf (AST/SGOT) 26 U/L (15-37) Alanine Aminotransferase (ALT/SGPT) 57 U/L (16-63) Alkaline Phosphatase 158 U/L (46-116) Total Protein 7.4 g/dL (6.4-8.2) Albumin 2.5 g/dL (3.4-5.0) Albumin/Globulin Ratio 0.5 (1.0-1.7) Laboratory Tests Test 06/04/21 06:45 White Blood Count 5.8 x10^3/uL (4.0-11.0) Red Blood Count 5.30 x10^6/uL (4.30-5.70) Hemoglobin 13.2 g/dL (13.0-17.5) Hematocrit 40.3 % (39.0-53.0) Mean Corpuscular Volume 76 fL (79-100) Mean Corpuscular Hemoglobin 25 pg (25-35) Mean Corpuscular Hemoglobin Concent 33 g/dL (31-37) Red Cell Distribution Width 14.9 % (11.5-14.5) Platelet Count 214 x10^3/uL (140-400) Neutrophils (%) (Auto) 54 % (31-73) Lymphocytes (%) (Auto) 26 % (24-48) Monocytes (%) (Auto) 15 % (0-9) Eosinophils (%) (Auto) 5 % (0-3) Basophils (%) (Auto) 1 % (0-3) Neutrophils # (Auto) 3.1 x10^3/uL (1.8-7.7) Lymphocytes # (Auto) 1.5 x10^3/uL (1.0-4.8) Monocytes # (Auto) 0.9 x10^3/uL (0.0-1.1) Eosinophils # (Auto) 0.3 x10^3/uL (0.0-0.7) Basophils # (Auto) 0.0 x10^3/uL (0.0-0.2) Segmented Neutrophils % 22 % (35-66) Band Neutrophils % 18 % (0-9) Lymphocytes % 37 % (24-48) Monocytes % 16 % (0-10) Eosinophils % 5 % (0-5) Basophils % 1 % (0-3) Myelocytes % 1 % (0-0) Platelet Estimate Adequate (ADEQUATE) Sodium Level 136 mmol/L (136-145) Potassium Level 3.6 mmol/L (3.5-5.1) Chloride Level 102 mmol/L (98-107) Carbon Dioxide Level 24 mmol/L (21-32) Anion Gap 10 (6-14) Blood Urea Nitrogen 15 mg/dL (8-26) Creatinine 0.7 mg/dL (0.7-1.3) Estimated GFR (Cockcroft-Gault) 119.4 BUN/Creatinine Ratio 21 (6-20) Glucose Level 138 mg/dL (70-99) Calcium Level 8.7 mg/dL (8.5-10.1) Total Bilirubin 0.4 mg/dL (0.2-1.0) Aspartate Amino Transf (AST/SGOT) 26 U/L (15-37) Alanine Aminotransferase (ALT/SGPT) 57 U/L (16-63) Alkaline Phosphatase 158 U/L (46-116) Total Protein 7.4 g/dL (6.4-8.2) Albumin 2.5 g/dL (3.4-5.0) Albumin/Globulin Ratio 0.5 (1.0-1.7) Problem List Problems Medical Problems: (1) Appendicitis Status: Acute Assessment/Plan ct stable, no abscess ok from surgical pov to dc home Justicifation of Admission Dx: Justifications for Admission: Justification of Admission Dx: Yes TERRY RAYO ANALYST [employer] Jun 04, 2021 13:05
--- NOTE | 2021-06-04 14:53 | NUR ---
Discharge Note: [place] Discharge instructions and discharge home medications reviewed with the patient and a copy given. All questions have been answered and understanding verbalized. The following instructions and handouts were given: Antibiotics as directed. May shower no tub baths Discussed signs and symptoms to watch out for Follow up with the surgeon in 2 weeks Follow up with Dr. Canada in 5 days. Discontinued lines and drains: IV intact, no complications Patient discharged to home with self care accompanied by family members at 1330.
[2021-06-04] MEDS ORDERED: AMOXICILLIN/K CLAV 875/125MG TABLET. PO SCH (21:00)
--- NOTE | 2021-06-05 15:11 | PATHOLOGY ---
[facility] Accession Number: [id number] . 01 Material submitted: . appendix - APPENDIX . 01 Clinician provided ICD-10: n . 01 Clinical history: . APPENDICITIS . 02 Diagnosis: Appendix, laparoscopic appendectomy: - Acute appendicitis with serosal hemorrhage and exudate. (REBCEA:vitaliy; 06/05/2021) MBR 06/05/2021 1016 Local . 02 Comment: There is no evidence of rupture. There is no evidence of malignancy. (JPM:vitaliy; 06/05/2021) . 02 Electronically signed: . Jesús Francis MD, Pathologist NPI- [id number] . 01 Gross description: . Fixative: Formalin Labeled: Appendix Appendix length: 10.5 cm Appendix diameter: 1.1 cm Mesoappendix: 2.3 cm Proximal margin: Stapled Serosa: Champagne-flaherty, roughened and hemorrhagic with a mild amount of fibrinous exudate Cut surface: Dilated Luminal diameter: Up to 0.6 cm Perforation: Not identified Lesions/abnormalities: None identified . Proximal margin and bisected tip in cassette A1. Additional call center representative cross-sections in cassettes A2 and A3. ([facility]; 06/02/2021) NRI/NRI 06/05/2021 1015 Local . 02 Pathologist provided ICD-10: K35.80 . 02 CPT . 350492 Specimen Comment: A courtesy copy of this report has been sent to [phone], [phone] Specimen Comment: [id number] Specimen Comment: Report sent to Dr. KIMBLE / DR DE JESUS Performed at: [address], [place], [place] [id number] MD Martin Mortensen MD Phone: [phone] Performed at: 02 [facility] [address] [place], [place] [id number] MD Jesús Francis MD Phone: [phone]
--- NOTE | 2021-06-07 17:03 | PDOC ---
Provider Note Date of Service: DATE: 06/07/21 TIME: 17:03 Provider Note Discharge summary dictated.#[id number]. Justifications for Admission Other Justification MELONY KIMBLE MD Jun 07, 2021 17:03
--- NOTE | 2021-06-07 20:30 | DS ---
DATE OF DISCHARGE: 06/04/2021 REASON FOR ADMISSION TO THE HOSPITAL: Acute appendicitis. CONSULTATIONS: Dr. Hamliton and Dr. Osuna. PROCEDURES DONE: Laparoscopic appendectomy. HOSPITAL COURSE: The patient is a 50-year-old male. The patient was having abdominal pain for the last 24 hours. He came to the Emergency Room with right lower quadrant tenderness. CT scan, acute appendicitis. The patient was taken to surgery, had a laparoscopic appendectomy by Dr. Hamilton and some gangrenous appendicitis. The patient did well. Two days after surgery, the patient developed postoperative fevers, was placed on IV Zosyn. Culture was negative. Repeat CT scan done 3 days later because of the fevers does not show any abscess. The patient was discharged on oral antibiotic, Augmentin. FINAL DIAGNOSES: 1. Acute appendicitis. Had a laparoscopic appendectomy. 2. Postoperative fevers. No evidence of any abscess. DISPOSITION: The patient was discharged on Augmentin twice a day for 14 days. The patient is supposed to see General Surgery in 1 week, PCP in 2 weeks. PAOLA/HORACE DR: URVASHI/monica TID: [id number]
== END 2021-06-04 13:30 | disposition home or self-care (01) | DRG 343 ==
LOC: ER 10:12 → 2 NORTH 14:12 → 4 NORTH 06-02 17:03
PROVIDERS: ADMIT Internal Medicine; ATTEND Internal Medicine
PROC: 0DTJ4ZZ Resection of Appendix, Percutaneous Endoscopic Approach (ICD-10-PCS; principal; 2021-05-31 14:00)
DX: K35.891 Other acute appendicitis without perforation, with gangrene (principal); E11.9 Type 2 diabetes mellitus without complications; E78.5 Hyperlipidemia, unspecified; I10 Essential (primary) hypertension; I25.10 Atherosclerotic heart disease of native coronary artery without angina pectoris; R50.82 Postprocedural fever; Z95.5 Presence of coronary angioplasty implant and graft; Z20.822 Contact with and (suspected) exposure to COVID-19
CPT/HCPCS: 36415; 74177; 80048; 80053; 82962; 83690; 85007; 85025; 85610; 87040; 87426; 88304; 93005; 96361; 96374; A4213; A4314; A4364; A4452; A4930; A6219; J1100; J1815; J2270; J2370; J2405; J2543; J2704; J3010; J3490; J7030; Q9966; Q9967; 99285-25; G0378